=== PATIENT | male | born 1980 | race Caucasian/White ===

== ENCOUNTER 2017-09-14 08:49 | Emergency (ER) | payer OTHER ==
[~2017-09-14] VITALS: Ht 182.9 cm; Wt 101.9 kg
[2017-09-14 08:50] VITALS: BP 126/64
[2017-09-14] MEDS ORDERED: FLON1SPR (10:45)
[2017-09-14] MEDS ORDERED: TESS100C PO (10:45)
[2017-09-14] MEDS ORDERED: ALL10TAB27 PO (10:45)
== END 2017-09-14 11:09 | disposition home or self-care (01) ==
LOC: M ED 08:49
DX: J06.9 Acute upper respiratory infection, unspecified (principal)

== ENCOUNTER 2019-01-29 11:47 | Emergency (ER) | payer OTHER ==
[~2019-01-29] VITALS: Ht 188 cm; Wt 101.0 kg
[~2019-01-29 11:47] MED LIST: ALL10TAB28 PO; FLON1SPR; TESS100C PO
[2019-01-29] MEDS ORDERED: SUMA50TA2 PO (12:40)
[2019-01-29] MEDS ORDERED: NS 1,000 ML IV ONE (13:30)
[2019-01-29 13:53] LABS: HEMATOCRIT 43.9 % (42.0-52.0); HEMOGLOBIN 15.2 g/dl (13.5-17.5); MEAN CORPUSCULAR HEMOGLOBIN 31.9 pg (27.0-33.0); MEAN CORPUSCULAR HGB CONC 34.6 g/dl (32.0-36.5); MEAN CORPUSCULAR VOLUME 92.2 fl (80.0-96.0); PLATELET COUNT, AUTOMATED 199 10^3/uL (150-450); RED BLOOD COUNT 4.76 10^6/uL (4.30-6.10); WHITE BLOOD COUNT 11.6 10^3/uL (4.0-10.0)
--- NOTE | 2019-01-29 13:53 | REP ---
Clinical: Severe headache . Comparison: None . Findings: The ventricles, sulci, and cisterns are normal in position and appearance. De Los Santos-white differentiation is maintained. No acute intracranial hemorrhage, mass/mass effect, pathology or trauma/injury. No evidence for acute infarction. No extra-axial fluid collection. Calvarium is intact. Paranasal sinuses and mastoid air cells are clear. Impression: Normal noncontrast head CT. No evidence for acute intracranial pathology or trauma/injury. Electronically Signed by Zelalem Davis MD 01/29/2019 01:44 P
[2019-01-29 14:11] LABS: PARTIAL THROMBOPLASTIN TIME 30.5 SECONDS (25.4-37.6); PROTHROMBIN TIME 13.3 SECONDS (12.1-14.4)
[2019-01-29] MEDS ORDERED: diphenhydrAMINE INJ 50MG/ML VIAL (J1200) IV ONE (14:15)
[2019-01-29] MEDS ORDERED: METOCLOPRAMIDE INJ 10MG/2ML VIAL (J2765) IV ONE (14:15)
[2019-01-29] MEDS ORDERED: KETOROLAC 30 MG/ML VIAL (J1885) IV ONE (14:15)
[2019-01-29 14:28] LABS: ERYTHROCYTE SEDIMENTATION RATE 2 mm/hr (0-15)
[2019-01-29 14:29] LABS: BLOOD UREA NITROGEN 17 MG/DL (7-18); C REACTIVE PROTEIN QUANTITATIV < 0.30 MG/DL (0.00-0.30); CARBON DIOXIDE LEVEL 32 MEQ/L (21-32); CHLORIDE LEVEL 100 MEQ/L (98-107); CREATININE FOR GFR 1.11 MG/DL (0.70-1.30); FREE T4 1.18 NG/DL (0.76-1.46); GLOMERULAR FILTRATION RATE > 60.0 (>60); GLUCOSE, FASTING 106 MG/DL (70-100); POTASSIUM SERUM 4.4 MEQ/L (3.5-5.1); SODIUM LEVEL 139 MEQ/L (136-145)
[2019-01-29 14:30] LABS: VITAMIN B12 LEVEL 589 PG/ML (247-911)
[2019-01-29 16:48] VITALS: BP 119/57
--- NOTE | 2019-01-29 17:02 | REP ---
Clinical: Severe headaches. Technique: Standard noncontrast MRI sequencing of the brain. Findings: Ventricles, sulci, and cisterns are symmetric and normal. De [place] Santos-white differentiation is maintained. No abnormal signal intensity findings are appreciated to suggest pathology. No mass or mass effect. The sinuses are clear. No evidence for acute infarction. Impression: Negative noncontrast MRI of the brain. Electronically Signed by Zelalem Davis MD 01/29/2019 04:53 P
--- NOTE | 2019-01-29 17:07 | REP ---
Clinical: Severe headaches and aphasia. Technique: Axial noncontrast 3-D [id number] source images through the brain with multiplanar MIP re-formations. Findings: Intracranial vasculature including visualized vertebrobasilar system, ambler of Morales, and intracranial arteries extending into the bilateral hemispheres appear relatively symmetric and normal. No evidence for stenosis/occlusion, arteriovenous malformation, or obvious aneurysm. Impression: Negative MRA of the brain. Electronically Signed by Zelalem Davis MD 01/29/2019 04:58 P
[2019-01-31 00:08] LABS: ANTINUCLEAR ANTIBODIES DIRECT Negative (Negative); Lyme Disease IgG/IgM Antibodie <0.91 ISR (0.00-0.90); Lyme Disease IgM Ab Quantitati <0.80 index (0.00-0.79)
== END 2019-01-29 17:25 | disposition home or self-care (01) ==
LOC: M ED 11:47
DX: G43.909 Migraine, unspecified, not intractable, without status migrainosus (principal)
CPT/HCPCS: 70450; 70544; 70551; 80048; 82607; 84439; 84443; 85027; 85610; 85652; 85730; 86038; 86140; 86617; 96361; 96374; 96375; 99284; J1200; J1885; J2765